=== PATIENT | male | born 1950 | race Caucasian/White ===

== ENCOUNTER 2020-07-13 21:16 | Observation (INO) ==
[2020-07-13] MEDS ORDERED: NS 0.9% 1000 ml BAG 1,000 ML IV ONE (21:18)
[2020-07-13] MEDS ORDERED: Iodixanol (CONTRAST) 320 MG/ML 100 ML SDV IV ONE (21:29)
[2020-07-13 22:00] LABS: ABS Basophils 0.1 10^3/ul (0-0.2); ABS Lymphocytes 1.2 10^3/ul (1.0-4.8); ABS Monocytes 0.3 10^3/ul (0-0.8); ABS Neutrophils 10.8 10^3/ul (1.5-7.7); Eosinophil % 0.1 %; Hematocrit 42 % (42-52); Lymphocyte % 9.4 %; Mean Corpuscular HGB Conc 33 g/dL (31-36); Mean Corpuscular Hemoglobin 32 pg (27-31); Mean Corpuscular Volume 97 fL (80-94); Mean Platelet Volume 8.4 fL (7.4-10.4); Platelet Count 262 10^3/uL (150-450); Red Blood Count 4.38 10^6 /uL (4.18-5.48); Red Cell Distribution Width 15 % (10-15); White Blood Count 12.3 10^3/uL (3.5-10.8)
[2020-07-13 22:03] LABS: Activated Partial Thrombo Time 34.3 seconds (26.0-38.0); INR 1.1 (0.82-1.09)
[2020-07-13 22:20] LABS: ALT 22 U/L (7-52); AST 29 U/L (13-39); Albumin 3.9 g/dL (3.2-5.2); Albumin/Globulin Ratio 1.4 (1-3); Alkaline Phosphatase 72 U/L (34-104); Anion Gap 8 mmol/L (2-11); BUN/Creatinine Ratio 18.4 (8-20); Blood Urea Nitrogen 16 mg/dL (6-24); CO2 Carbon Dioxide 24 mmol/L (22-32); Calcium 8.5 mg/dL (8.6-10.3); Chloride 107 mmol/L (101-111); Cholesterol 111 mg/dL; EGFR African American 105.9 (>60); EGFR Non-African American 87.5 (>60); Globulin 2.7 g/dL (2-4); Glucose 140 mg/dL (70-100); HDL Cholesterol 41.8 mg/dL; LDL Cholesterol 57 mg/dL; Potassium 4.2 mmol/L (3.5-5.0); Sodium 139 mmol/L (135-145); Total Protein 6.6 g/dL (6.4-8.9); Triglycerides 59 mg/dL
[2020-07-13 22:25] LABS: Lithium 0.38 mmol/L (0.6-1.2)
[2020-07-14 00:26] LABS: Alcohol, S < 10 mg/dL (<10)
[2020-07-14 01:26] LABS: C Reactive Protein 2.95 mg/L (<8.01)
[2020-07-14 01:46] LABS: Urine Appearance Cloudy; Urine Bilirubin Negative (Negative); Urine Blood Negative (Negative); Urine Color Yellow; Urine Glucose Negative (Negative); Urine Ketones 1+ (Negative); Urine Nitrite Negative (Negative); Urine Protein Negative (Negative); Urine Urobilinogen Negative (Negative)
[2020-07-14 02:02] LABS: Urine Benzodiazepine Screen None Detected (None Detect); Urine Cannabinoids Screen None Detected (None Detect); Urine Opiates Screen None Detected (None Detect)
[2020-07-14] MEDS: Enoxaparin 40 MG/0.4 ML SYR SUBCUT SCH (05:21)
[2020-07-14 06:42] LABS: ABS Basophils 0.1 10^3/ul (0-0.2); ABS Lymphocytes 1.6 10^3/ul (1.0-4.8); ABS Monocytes 0.4 10^3/ul (0-0.8); ABS Neutrophils 8.8 10^3/ul (1.5-7.7); Eosinophil % 0.2 %; Hematocrit 41 % (42-52); Hemoglobin 13.5 g/dL (14.0-18.0); Lymphocyte % 14.8 %; Mean Corpuscular HGB Conc 33 g/dL (31-36); Mean Corpuscular Hemoglobin 32 pg (27-31); Mean Corpuscular Volume 96 fL (80-94); Mean Platelet Volume 8.1 fL (7.4-10.4); Platelet Count 287 10^3/uL (150-450); Red Blood Count 4.27 10^6 /uL (4.18-5.48); Red Cell Distribution Width 15 % (10-15); White Blood Count 10.8 10^3/uL (3.5-10.8)
[2020-07-14 07:06] LABS: Calcium 8.6 mg/dL (8.6-10.3); EGFR African American 107.3 (>60); EGFR Non-African American 88.7 (>60); Potassium 3.7 mmol/L (3.5-5.0)
[2020-07-14] MEDS: Multivitamins/Minera Areds(NF) CAP PO SCH ×2 (10:13→20:56)
[2020-07-14 11:55] LABS: Magnesium 2.1 mg/dL (1.9-2.7); Phosphorus 3.6 mg/dL (2.5-5.0)
[2020-07-14 14:21] LABS: TSH Ultra Thyroid Stim Horm 0.88 mcIU/mL (0.34-5.60)
[2020-07-14] MEDS ORDERED: Perflutren Lipid Microsphere 3 ML VIAL ONE (14:55)
[2020-07-14 17:47] LABS: Lithium 0.3 mmol/L (0.6-1.2)
[2020-07-14] MEDS: Nicotine PATCH 21 MG/24 HR PATCH TRANSDERM SCH (23:52)
[2020-07-15] MEDS: Enoxaparin 40 MG/0.4 ML SYR SUBCUT SCH (09:41)
[2020-07-15] MEDS: Nicotine PATCH 21 MG/24 HR PATCH TRANSDERM SCH (09:44)
[2020-07-15] MEDS: Multivitamins/Minera Areds(NF) CAP PO SCH (10:14)
[2020-07-15 18:15] VITALS: BP 150/90
== END 2020-07-15 13:35 | disposition home or self-care (01) ==
LOC: MEDTELE 21:16 → ED 21:16 → MEDTELE 07-14 03:57
PROVIDERS: ADMIT Internal Medicine; ATTEND Internal Medicine

== ENCOUNTER 2022-09-01 13:18 | Observation (INO) ==
[2022-09-01] MEDS ORDERED: Iodixanol (CONTRAST) 320 MG/ML 100 ML SDV IV ONE (13:34)
[2022-09-01 13:53] LABS: ABS Basophils 0.1 10^3/uL (0.0-0.1); ABS Eosinophils 0.3 10^3/uL (0.0-0.5); ABS Lymphocytes 2.4 10^3/uL (1.0-4.8); ABS Monocytes 0.6 10^3/uL (0.0-1.1); Eosinophil % 2.9 %; Hematocrit 39.4 % (38-53); Lymphocyte % 25.3 %; Mean Corpuscular Hemoglobin 31.1 pg (27-33); Mean Corpuscular Volume 94.1 fL (80-97); Mean Platelet Volume 8.2 fL (7.5-11.2); Platelet Count 271 10^3/uL (150-450); Red Blood Count 4.18 10^6/uL (4.06-5.63); Red Cell Distribution Width 14.4 % (12-17); White Blood Count 9.3 10^3/uL (3.6-10.2)
[2022-09-01 14:02] LABS: INR 1.12 (0.88-1.18)
[2022-09-01 14:03] LABS: Activated Partial Thrombo Time 35.6 seconds (26.0-38.0)
[2022-09-01 14:21] LABS: ALT 18 U/L (7-52); AST 21 U/L (13-39); Albumin/Globulin Ratio 1.8 (1-3); Alcohol, S < 13 mg/dL (<13); Alkaline Phosphatase 66 U/L (35-149); Anion Gap 5 mmol/L (2-16); Blood Urea Nitrogen 17 mg/dL (6-24); CO2 Carbon Dioxide 28 mmol/L (22-32); Calcium 9.1 mg/dL (8.6-10.3); Chloride 107 mmol/L (101-111); Cholesterol 129 mg/dL; Globulin 2.2 g/dL (2-4); Glucose 119 mg/dL (70-100); LDL Cholesterol 59 mg/dL; Potassium 4.3 mmol/L (3.5-5.0); Sodium 140 mmol/L (135-145); Total Protein 6.2 g/dL (6.4-8.9); Triglycerides 145 mg/dL; eGFR CKD-EPI 91.9 (>60)
[2022-09-01 14:25] LABS: Urine Appearance Clear; Urine Bilirubin Negative (Negative); Urine Blood Negative (Negative); Urine Color Straw; Urine Glucose Negative (Negative); Urine Ketones Trace (Negative); Urine Nitrite Negative (Negative); Urine Protein Negative (Negative); Urine Specific Gravity 1.011 (1.002-1.030); Urine Urobilinogen Negative (Negative)
[2022-09-01 15:12] LABS: Urine Benzodiazepine Screen None Detected (None Detect); Urine Cannabinoids Screen None Detected (None Detect); Urine Opiates Screen None Detected (None Detect)
[2022-09-01 18:05] LABS: C Reactive Protein 7.28 mg/L (<8.01)
[2022-09-01 18:15] LABS: Urine Buprenorphine Screen None Detected (None Detect); Urine Fentanyl Screen None Detected (None Detect); Urine Hydrocodone Screen None Detected (None Detect)
[2022-09-01] MEDS ORDERED: Enoxaparin 40 MG/0.4 ML SYR SUBCUT SCH (21:00)
[2022-09-02 06:37] LABS: ABS Basophils 0.1 10^3/uL (0.0-0.1); ABS Eosinophils 0.1 10^3/uL (0.0-0.5); ABS Lymphocytes 1.6 10^3/uL (1.0-4.8); ABS Monocytes 0.7 10^3/uL (0.0-1.1); ABS Neutrophils 6.5 10^3/uL (1.5-7.6); ABS Nucleated RBC 0.01 10^3/ul; Eosinophil % 1.3 %; Hematocrit 41.2 % (38-53); Hemoglobin 13.9 g/dL (13.2-16.3); Lymphocyte % 18.2 %; Mean Corpuscular Hemoglobin 32.1 pg (27-33); Mean Corpuscular Hgb Conc 33.8 g/dL (31-36); Mean Platelet Volume 8.6 fL (7.5-11.2); Nucleated Red Blood Cells % 0.1 /100 WBC (0.0-0.4); Platelet Count 289 10^3/uL (150-450); Red Blood Count 4.34 10^6/uL (4.06-5.63); Red Cell Distribution Width 14.4 % (12-17)
[2022-09-02 07:14] LABS: Calcium 8.7 mg/dL (8.6-10.3); Creatinine, Serum 1.01 mg/dL (0.67-1.17); Potassium 4.2 mmol/L (3.5-5.0)
[2022-09-02 10:48] VITALS: BP 124/54
== END 2022-09-02 14:50 ==
LOC: EDHOLD 13:18 → ED 13:18 → MEDTELE 13:48
PROVIDERS: ADMIT Internal Medicine; ATTEND Internal Medicine